=== PATIENT | male | born 1935 | race Native Hawaiian/Other Pacific Islander ===

== ENCOUNTER 2020-10-26 10:30 | Outpatient (CLI) | payer OTHER | END 2020-10-26 20:20 | disposition home or self-care (01) | LOC: RAD 10:30 | PROVIDERS: ATTEND Registered Nurse | DX: S99.821A Other specified injuries of right foot, initial encounter (principal) ==

== ENCOUNTER 2021-09-12 12:51 | Outpatient (CLI) | payer OTHER ==
[2021-09-12 13:29] LABS: PLATELET COUNT 210 K/uL (142-355)
[2021-09-12 13:46] LABS: POTASSIUM 4.4 mmol/L (3.6-5.2)
== END 2021-09-12 20:24 | disposition home or self-care (01) ==
LOC: LABW 12:51
PROVIDERS: ATTEND Internal Medicine
DX: R30.9 Painful micturition, unspecified (principal); D64.9 Anemia, unspecified
CPT/HCPCS: 36415; 80053; 81000; 82607; 82728; 82746; 83540; 83550; 85027; 87077; 87086; 87088; 87186

== ENCOUNTER 2023-06-18 10:28 | Outpatient (CLI) | payer OTHER | END 2023-06-18 19:14 | disposition home or self-care (01) | LOC: RAD 10:28 | PROVIDERS: ATTEND Nurse Practitioner Family | DX: R06.01 Orthopnea (principal) ==